=== PATIENT | male | born 2000 | race Two or more races ===

== ENCOUNTER 2022-07-26 17:24 | Emergency (ER) | payer OTHER, MEDICAID ==
[~2022-07-26] VITALS: Ht 177.8 cm; Wt 75.0 kg
[~2022-07-26 17:24] MED LIST: ALBUPOW26
[2022-07-26 19:40] VITALS: BP 132/89
== END 2022-07-26 20:13 | disposition home or self-care (01) ==
LOC: ER 17:24
DX: F41.0 Panic disorder [episodic paroxysmal anxiety] (principal); F12.10 Cannabis abuse, uncomplicated
CPT/HCPCS: 93005